=== PATIENT | male | born 1950 | race Caucasian/White ===

== ENCOUNTER 2022-07-28 06:45 | Day surgery (SDC) | payer MEDICARE, OTHER ==
[2022-07-28] MEDS ORDERED: Midazolam 1 MG/ML 2 ML SDV IV ONE (06:46)
[2022-07-28] MEDS ORDERED: fentaNYL 100 MCG/2 ML SDV IV ONE (06:46)
[2022-07-28] MEDS ORDERED: Sodium Chloride 0.9% 10 ML Syringe FLUSH PRN (08:00)
[2022-07-28] MEDS ORDERED: Lactated Ringers 1,000 ML IV PRN (08:00)
[2022-07-28] MEDS ORDERED: acetaZOLAMIDE 500 MG Cap.ER PO ONE (08:30)
== END 2022-07-28 09:04 | disposition home or self-care (01) ==
LOC: FB.SDS 06:45
PROVIDERS: ATTEND Ophthalmology
DX: H26.9 Unspecified cataract (principal); I10 Essential (primary) hypertension; M19.90 Unspecified osteoarthritis, unspecified site; F32.A Depression, unspecified; Z87.891 Personal history of nicotine dependence; Z79.899 Other long term (current) drug therapy
CPT/HCPCS: 00142; 66984; A9270; J2250; J3010; V2632

== ENCOUNTER 2022-08-18 07:19 | Day surgery (SDC) | payer MEDICARE, OTHER ==
[~2022-08-18 07:19] MED LIST: Lactated Ringers 1,000 ML IV PRN; Sodium Chloride 0.9% 10 ML Syringe FLUSH PRN
[2022-08-18] MEDS ORDERED: fentaNYL 100 MCG/2 ML SDV IV ONE (07:20)
[2022-08-18] MEDS ORDERED: Midazolam 1 MG/ML 2 ML SDV IV ONE (07:20)
[2022-08-18] MEDS ORDERED: acetaZOLAMIDE 500 MG Cap.ER PO ONE (08:00)
== END 2022-08-18 10:14 | disposition home or self-care (01) ==
LOC: FB.SDS 07:19
PROVIDERS: ATTEND Ophthalmology
DX: H25.813 Combined forms of age-related cataract, bilateral (principal); H35.372 Puckering of macula, left eye; H43.822 Vitreomacular adhesion, left eye; H35.352 Cystoid macular degeneration, left eye; H52.03 Hypermetropia, bilateral; I10 Essential (primary) hypertension; M19.90 Unspecified osteoarthritis, unspecified site; F32.A Depression, unspecified; Z79.899 Other long term (current) drug therapy; Z87.891 Personal history of nicotine dependence
CPT/HCPCS: 00142-QZ; A9270-GY; J2250; J3010; V2632

== ENCOUNTER 2025-02-05 06:44 | Day surgery (SDC) | payer MEDICARE, OTHER ==
[2025-02-05] MEDS ORDERED: Lidocaine 2% 100 MG/5 ML Syringe IVPUSH ONE (06:45)
[2025-02-05] MEDS ORDERED: Propofol 200 MG/20 ML SDV IV ONE (06:45)
[2025-02-05] MEDS ORDERED: Sodium Chloride 0.9% 10 ML Syringe FLUSH PRN (07:00)
[2025-02-05] MEDS: Lactated Ringers 1,000 ML IV SCH (07:39)
[2025-02-05] MEDS: Simethicone Drops 40 MG/0.6 ML 30 ML Bottle ONE (08:18)
== END 2025-02-05 09:30 | disposition home or self-care (01) ==
LOC: FB.SDS 06:44
PROVIDERS: ATTEND Surgery
DX: Z12.11 Encounter for screening for malignant neoplasm of colon (principal); R19.5 Other fecal abnormalities; K57.30 Diverticulosis of large intestine without perforation or abscess without bleeding; K42.0 Umbilical hernia with obstruction, without gangrene; K40.90 Unilateral inguinal hernia, without obstruction or gangrene, not specified as recurrent; I10 Essential (primary) hypertension; F32.A Depression, unspecified; Z87.891 Personal history of nicotine dependence; Z79.899 Other long term (current) drug therapy
CPT/HCPCS: 45384; 88305; A9270; J2704; J7120; 00811